=== PATIENT | female | born 1995 | race Two or more races ===

== ENCOUNTER 2020-04-02 18:25 | Emergency (ER) | payer OTHER ==
[~2020-04-02] VITALS: Ht 160 cm; Wt 60.2 kg
[2020-04-02 18:27] VITALS: BP 148/71
== END 2020-04-02 19:29 | disposition home or self-care (01) ==
LOC: ED 19:12
DX: S62.652A Nondisplaced fracture of middle phalanx of right middle finger, initial encounter for closed fracture (principal); X58.XXXA Exposure to other specified factors, initial encounter; Y93.79 Activity, other specified sports and athletics; Y92.328 Other athletic field as the place of occurrence of the external cause; Y99.8 Other external cause status
CPT/HCPCS: 29130; 99283